=== PATIENT | female | born 1970 | race Hispanic/Latino ===

== ENCOUNTER 2016-10-16 09:15 | Emergency (ER) | payer BC ==
[2016-10-16 09:40] VITALS: RESP 16; TEMP 98; O2SAT 100; BMI 37.8
--- NOTE | 2016-10-16 09:54 | ED PDOC ---
Lower Extremity Pain/Injury Time Seen by Provider: 10/16/16 09:40 Chief Complaint (Nursing): Lower Extremity Problem/Injury History Per: Patient (states that she felt popping sensation of the right knee as she stood up from sitting in chair. 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 Since incident she noted swelling of the knee and has had significantly more trouble on the affected knee when she descends steps. She has less trouble when she climbs stair. She has also noted numbness in the right toes.) History/Exam Limitations: no limitations Onset/Duration Of Symptoms: Days (1 week), Sudden Onset, Persistent Current Symptoms Are (Timing): Still Present Severity: Moderate Past Medical History Reviewed: Historical Data, Nursing Documentation, Vital Signs Vital Signs: Last Vital Signs Temp 98.0 F 10/16/16 09:23 Pulse 83 10/16/16 09:23 Resp 16 10/16/16 09:23 BP 136/80 10/16/16 09:23 Pulse Ox 100 10/16/16 09:23 - Medical History PMH: Denies: HIV, Chronic Kidney Disease - Surgical History Surgical History: Other surgeries: gastric bypass - Family History Family History: States: No Known Family Hx - Social History Current smoker - smoking cessation education provided: No Alcohol: Occasional - Immunization History Hx Tetanus Toxoid Vaccination: No Hx Influenza Vaccination: No Hx Pneumococcal Vaccination: No - Home Medications Home Medications: Ambulatory Orders Medication Instructions Recorded Acetaminophen with Codeine 1 each PO Q4 PRN #15 tablet 08/14/15 [Acetaminophen-Cod #3 Tablet] Atropine Sulfate/Diphenoxyla 1 tab PO TID PRN #12 tab 08/14/15 [Lomotil 0.025 mg-2.5 mg] Ciprofloxacin/Ciprofloxa HCl 500 mg PO BID #14 tab 08/14/15 [Ciprofloxacin] Metronidazole [Flagyl] 500 mg PO TID #21 tab 08/14/15 Multivitamins [Hexavitamin] 1 tab PO DAILY 08/14/15 Ondansetron Hydrochloride 4 mg PO Q6 PRN #12 tab 08/14/15 traMADol/Acetaminophen [Ultracet 1 - 2 tab PO QID #40 tab 10/16/16 325 MG-37.5 MG] - Allergies Allergies/Adverse Reactions: Allergies Allergy/AdvReac Type Severity Reaction Status Date / Time ibuprofen Allergy ANAPHYLAXIS Verified 08/15/15 05:43 morphine Allergy ITCHING Verified 08/15/15 05:43 Review of Systems ROS Statement: Except As Marked, All Systems Reviewed And Found Negative Musculoskeletal: Positive for: Other (knee pain and swelling) Physical Exam - Reviewed Nursing Documentation Reviewed: Yes Vital Signs Reviewed: Yes - Physical Exam Appears: Positive for: Well, Non-toxic, No Acute Distress Head Exam: Positive for: ATRAUMATIC, NORMAL INSPECTION, NORMOCEPHALIC Skin: Positive for: Normal Color, Warm, DRY Eye Exam: Positive for: EOMI, Normal appearance, PERRL ENT: Positive for: Normal ENT Inspection Neck: Positive for: Normal, Painless ROM Cardiovascular/Chest: Positive for: Regular Rate, Rhythm Respiratory: Positive for: CNT, Normal Breath Sounds Gastrointestinal/Abdominal: Positive for: Normal Exam, Bowel Sounds, Soft Back: Positive for: Normal Inspection Extremity: Positive for: Normal ROM, Other (palpable tenderness around knee joint. There is no localized tenderness. Mulugeta's sign is negative) Neurologic/Psych: Positive for: Alert, Oriented - ECG O2 Sat by Pulse Oximetry: 100 Disposition - Clinical Impression Clinical Impression: Knee osteoarthritis - Patient ED Disposition Is Patient to be Admitted: No Doctor Will See Patient In The: Office Counseled Patient/Family Regarding: Diagnosis, Need For Followup, Rx Given - Disposition Referrals: Avi Laureano MD [Staff Provider] - Disposition: Routine/Home Disposition Time: 12:35 Condition: STABLE Additional Instructions: Do not take Tylenol or acetaminophen containing product when taking the medicine that is prescribed in the ER. Prescriptions: traMADol/Acetaminophen [Ultracet 325 MG-37.5 MG] 1 - 2 tab PO QID #40 tab Instructions: Osteoarthritis (ED) - POA Present On Arrival: None
--- NOTE | 2016-10-16 11:56 | CT ---
PROCEDURE: CT right knee HISTORY: pop sensation 1 week ago as she stood from chair COMPARISON: None available TECHNIQUE: 2.5 mm contiguous axial sections were acquired through the right knee. Sagittal and coronal images were reformatted from the axial scan. FINDINGS: There is no evidence of fracture. There is mild tricompartmental osteoarthritis. There is a small suprapatellar bursal effusion. There is no popliteal cyst. IMPRESSION: No fracture. Small joint effusion. Mild tricompartmental osteoarthritis.
--- NOTE | 2016-10-16 12:10 | RAD ---
PROCEDURE: Right Knee Radiographs. HISTORY: pop sensation 1 week ago as she stood from chair COMPARISON: None. FINDINGS: BONES: Normal. No fracture. JOINTS: No fracture identified. There is linear calcification parallel to and medial to the proximal fibular diaphysis, likely within the interosseous membrane. JOINT EFFUSION: No appreciable joint effusion OTHER FINDINGS: None. IMPRESSION: No acute fracture.
[2016-10-16 13:44] VITALS: BP 126/78; PULSE 80
== END 2016-10-16 12:30 | disposition home or self-care (01) ==
LOC: H.ER 09:15
DX: M17.11 Unilateral primary osteoarthritis, right knee (principal)